=== PATIENT | female | born 1950 | race Two or more races ===

== ENCOUNTER 2018-06-04 11:04 | Outpatient (CLI) | payer OTHER | END 2018-06-04 11:09 | disposition home or self-care (01) | LOC: RAD 11:04 | DX: M54.5 Low back pain (principal); M05.79 Rheumatoid arthritis with rheumatoid factor of multiple sites without organ or systems involvement; Z12.31 Encounter for screening mammogram for malignant neoplasm of breast; Z87.898 Personal history of other specified conditions; N64.4 Mastodynia ==

== ENCOUNTER 2018-06-26 10:05 | Outpatient (CLI) | payer OTHER | END 2018-06-26 10:16 | disposition home or self-care (01) | LOC: RAD 10:05 | DX: M43.16 Spondylolisthesis, lumbar region (principal); M17.0 Bilateral primary osteoarthritis of knee; M25.551 Pain in right hip; R93.5 Abnormal findings on diagnostic imaging of other abdominal regions, including retroperitoneum | CPT/HCPCS: 72148 ==

== ENCOUNTER 2018-07-31 11:21 | Outpatient (CLI) | payer OTHER | END 2018-07-31 11:28 | disposition home or self-care (01) | LOC: MRI 11:21 | DX: I67.89 Other cerebrovascular disease (principal); R41.3 Other amnesia | CPT/HCPCS: 70551 ==

== ENCOUNTER 2018-10-11 09:39 | Outpatient (CLI) | payer OTHER | END 2018-10-11 10:40 | disposition home or self-care (01) | LOC: RAD 09:39 | DX: M48.061 Spinal stenosis, lumbar region without neurogenic claudication (principal); M54.5 Low back pain; M54.2 Cervicalgia ==

== ENCOUNTER 2018-12-16 09:55 | Outpatient (CLI) | payer OTHER | END 2018-12-16 10:18 | disposition home or self-care (01) | LOC: NUCLEAR 09:55 | DX: M81.0 Age-related osteoporosis without current pathological fracture (principal) ==

== ENCOUNTER 2019-06-24 10:50 | Outpatient (CLI) | payer OTHER | END 2019-06-24 10:56 | disposition home or self-care (01) | LOC: MAMO-SONO 10:50 | DX: Z12.31 Encounter for screening mammogram for malignant neoplasm of breast (principal); Z87.898 Personal history of other specified conditions; N64.4 Mastodynia; D25.1 Intramural leiomyoma of uterus ==

== ENCOUNTER 2020-07-29 06:56 | Day surgery (SDC) | payer OTHER ==
[~2020-07-29 06:56] MED LIST: CELEXA10 MG PO; DICLOFENAC-MIS1 EAC1 PO; LIPITOR20 MG PO; LOSARTAN POTASS25 MG PO; MEDROL4 MG PO; METHOTREXATE2.5 MG PO; ORENCIA 250 MG250 MG IV
== END 2020-07-29 16:30 | disposition home or self-care (01) ==
LOC: CIR.AMB 06:56
PROVIDERS: ATTEND Obstetrics & Gynecology
DX: N72 Inflammatory disease of cervix uteri (principal); Z20.828 Contact with and (suspected) exposure to other viral communicable diseases

== ENCOUNTER → 2020-11-04 | Outpatient (CLI) | payer OTHER | END | disposition home or self-care (01) | LOC: MAMO-SONO 13:45 | PROVIDERS: ATTEND Obstetrics & Gynecology | DX: D25.1 Intramural leiomyoma of uterus (principal); Z12.31 Encounter for screening mammogram for malignant neoplasm of breast; N64.59 Other signs and symptoms in breast; R93.5 Abnormal findings on diagnostic imaging of other abdominal regions, including retroperitoneum ==

== ENCOUNTER 2022-02-20 11:13 | Outpatient (CLI) | payer OTHER | END 2022-02-20 11:23 | disposition home or self-care (01) | LOC: MAMO-SONO 11:13 | PROVIDERS: ATTEND Obstetrics & Gynecology | DX: Z12.31 Encounter for screening mammogram for malignant neoplasm of breast (principal); N60.02 Solitary cyst of left breast; N60.01 Solitary cyst of right breast; D25.1 Intramural leiomyoma of uterus ==

== ENCOUNTER 2022-05-30 10:14 | Outpatient (CLI) | payer OTHER | END 2022-05-30 10:24 | disposition home or self-care (01) | LOC: RAD 10:14 | PROVIDERS: ATTEND Orthopaedic Surgery | DX: M25.561 Pain in right knee (principal); M25.562 Pain in left knee; M25.551 Pain in right hip; M25.552 Pain in left hip ==